=== PATIENT | female | born 1925 | race Caucasian/White ===

== ENCOUNTER 2017-02-15 10:30 | Inpatient (IN) | payer OTHER ==
[~2017-02-15] VITALS: Ht 162.6 cm; Wt 61.7 kg
[~2017-02-15 10:30] MED LIST: AMBIEN10 MG PO; ASPIR LOW81 MG PO; CARTIA XT120 MG PO; CENTRUM1 TA2 PO; CITRACAL CALCIU1 TAB PO; COL100 PO; COZAAR50 MG PO; DYA PO; MAXZIDE1 TAB PO; MIRUD PO; NOR10T PO; OSCD PO; PRI20 PO; PYR100 PO; ROC1I IV; TEMAZEPAM15 MG PO; TOR10 PO
--- NOTE | 2017-02-15 11:06 | NUR ---
PT BROUGHT TO ED BY SON FROM PRIMARY MD OFFICE FOR URINARY RETENTION SINCE LAST NIGHT. 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 " PT REPORTS FREQUENT UTI SYMPTOMS WITH DYSURIA, FREQUENCY, RETENTION AND INCONTINENCE THAT WORSENED X2 DAYS WITH RETENTION SINCE LAST NIGHT. PT AWAKE AND ALERT, RESPS EVEN AND UNLABORED, ABDOMEN FLAT/FIRM TO BLQ, TENDER TO TOUCH, PULL UP IN PLACE FROM HOME FOR INCONTINENCE. PT GOWNED, AWAITING MSE.
--- NOTE | 2017-02-15 11:18 | NUR ---
ATTEMPTED CHATTERJEE CATHETER X2, UNSUCCESSFUL, UNABLE TO ADVANCE, FEEL BLOCKAGE.
--- NOTE | 2017-02-15 11:22 | NUR ---
DR. ESPITIA AT BEDSIDE FOR MSE.
[2017-02-15 11:36] LABS: PLATELET COUNT 214 x10^3mcL (130-400)
[2017-02-15 11:44] LABS: CALCIUM 9.5 mg/dL (8.5-10.1); CARBON DIOXIDE 28.6 mmol/L (21-32); CHLORIDE SERUM 106 mmol/L (98-107); CREATININE SERUM 0.7 mg/dL (0.6-1.0); GLUCOSE SERUM 94 mg/dL (74-106); SODIUM SERUM 142 mmol/L (136-145)
[2017-02-15 11:49] LABS: ALBUMIN 3.8 g/dL (3.4-5.0); ALKALINE PHOSPHATASE 88 U/L (46-116); ALT/SGPT 12 U/L (14-59); AST/SGOT 12 U/L (15-37); BILIRUBIN TOTAL 0.46 mg/dL (0.20-1.00); LIPASE 85 IU/L (73-393); TOTAL PROTEIN, SERUM 7.3 g/dL (6.4-8.2)
--- NOTE | 2017-02-15 12:04 | NUR ---
PT VOIDED APPROX 160CC CLEAR YELLOW URINE TO BED BEAR. URINE SAMPLE SENT TO LAB, PT REPORTS RELIEVED PAIN TO ABDOMEN POST VOIDING.
[2017-02-15 12:16] LABS: RED CELL DISTRIBUTION WIDTH 15.3 % (11.5-14.5)
[2017-02-15 12:17] LABS: BASOPHIL 1 % (0-2); MONOCYTE 7 % (0-7); SEGMENTED NEUTROPHILS 80 % (37-75)
[2017-02-15 12:32] LABS: rbc morphology (normal/abnorm) NORMAL (NORMAL)
--- NOTE | 2017-02-15 13:35 | NUR ---
PT BEGAN TO C/O ABDOMINAL PAIN, MEDICATED WITH NORCO 5/325MG PO PER PT REQUEST AND MD ORDERS. PT LAYING IN ED GURNEY IN POSITION OF COMFORT, RESPS EVEN AND UNLABORED, NO S/S OF DISTRESS NOTED. COMFORT MEASURES IN PLACE, CALL LIGHT WITHIN REACH, SON AT BEDSIDE.
[2017-02-15 14:11] LABS: UA SPECIFIC GRAVITY <=1.005 (1.005-1.035); microscopic required? YES; urine erythrocyte 2+ (NEGATIVE)
--- NOTE | 2017-02-15 14:14 | NUR ---
PT TAKEN TO CT VIA [facility] BY TOD. PT IN NO DISTRESS.
--- NOTE | 2017-02-15 14:34 | NUR ---
PT BACK FROM CT, DIAPER AND PAD SATURATED WITH URINE, PT CHANGED, GOOD PERICARE PROVIDED. PT DENIES ANY PAIN, NO S/S OF DISTRESS NOTED. COMFORT MEASURES IN PLACE, SON AT BEDSIDE.
[2017-02-15] MEDS ORDERED: NORCO1 TA2 PO (15:05)
[2017-02-15] MEDS ORDERED: CLONAZEPAM0.5 MG PO (15:07)
--- NOTE | 2017-02-15 15:31 | NUR ---
REPORT CALLED TO DUSTIN DAVID, PT TO BE ADMITTED TO TELE ROOM 218B. PT A/O X4, RESPS EVEN AND UNLABORED, NO S/S OF DISTRESS NOTED.
[2017-02-15 15:48] LABS: PHOSPHOROUS 3.6 mg/dL (2.5-4.9)
[2017-02-15 15:57] LABS: T3 TOTAL 0.97 ng/mL
[2017-02-15 15:58] LABS: FREE T4 1.04 ng/dL (0.76-1.46); FREE THYROXINE INDEX 2.3 ug/dL (1.4-4.5); T4(THYROXINE) 6.7 ug/dL (4.7-13.3)
[2017-02-15 16:00] VITALS: BP 158/57
--- NOTE | 2017-02-15 16:10 | NUR ---
REC'D AOX4, SPEECH CLEAR. SON AT THE BEDSIDE. AMBULATES WITH ASSIST. DENIES PAIN, NV, DIZZINES, PUENTE. ATTACHED TELE. DENIES CHEST PAIN. ON RA, NO SOB NOTED. IV SITE WNL. ORIENTED PT TO ROOM AND SURROUNDINGS. CALL LIGHT WITHIN REACH, PROVIDED REPORT TO DUSTIN DAVID FOR CONTINUITY OF CARE.
[2017-02-15 17:05] VITALS: BP 156/58
--- NOTE | 2017-02-15 17:30 | NUR ---
SON AT BEDSIDE, PATIENT REQUESTING TO EAT. NO DIET ORDERED. DR SHAW PAGED, HE WILL PLACE REG DIET FOR DINNER. ALSO REQUESTED HIM TO PLACE CODE STATUS ORDER AND MADE HIM AWARE OF BP 158/57.
--- NOTE | 2017-02-15 18:23 | NUR ---
PATIENT TOLERATED DINNER MEAL WELL, FAIR APPETITE. SON REQUESTING TO SPEAK WITH DR. DR VALERIA MASON, STILL AWAITING NEW ORDERS. LINENS SOILED, PATIENT CLEANSED, INCONTINENCE NOTED- PATIENT STATES SHE 'FEELS LIKE GOING EVERY HOUR'. CALL LIGHT REINFORCED TO USE, VERBALIZED UNDERSTANDING. PATIENT DENIES DISCOMFORT AT THIS TIME. NO ACUTE DISTRESS NOTED. NO OTHER SIGNFICANT CHANGE IN CONDITION. WILL CONT TO MONITOR AND ENDORSE TO NOC RN.
--- NOTE | 2017-02-15 19:15 | NUR ---
SEEN IN BED AWAKE, ALERT, ORIENTED X3. SON AT BEDSIDE. NO SOB NOTED ON ROOM AIR. DENIES PAIN. OWN WALKER AT BEDSIDE. STS USUALLY TAKE SLEEPING PILL AT NIGHT. WILL FOLLOW UP WITH DOCTOR VALERIA. IV ACCESS TO LAC INTACT AND PATENT. NO ORDER FOR IVF YET. REINSTRUCTED TO USE CALL LIGHT NEEDED. BED IN LOWEST POSITION AND LOCKED. SIDERAILS UP X2.
--- NOTE | 2017-02-15 19:30 | NUR ---
DOCTOR SHAW AT BEDSIDE TALKING TO PATIENT AND HIS SON.
[2017-02-15] MEDS ORDERED: K10 PO (20:21)
[2017-02-15] MEDS ORDERED: IBUPROFEN400 MG PO (20:22)
[2017-02-15 21:59] VITALS: BP 148/56
[2017-02-16 05:53] VITALS: BP 142/55
--- NOTE | 2017-02-16 05:59 | NUR ---
NO ACUTE DISTRESS THROUGHOUT THE SHIFT. VSS. DENIES PAIN. STS VOIDED X2 NO BURNING SENSATION. BRP USING WALKER WITH STEADY GAIT. UPDATED PATIENT'S CONDITION TO FAMILY VIA PHONE.
[2017-02-16 06:32] LABS: CALCIUM 8.7 mg/dL (8.5-10.1); CARBON DIOXIDE 29.9 mmol/L (21-32); CHLORIDE SERUM 107 mmol/L (98-107); CREATININE SERUM 0.7 mg/dL (0.6-1.0); GLUCOSE SERUM 87 mg/dL (74-106); POTASSIUM SERUM 3.7 mmol/L (3.5-5.1); SODIUM SERUM 144 mmol/L (136-145)
[2017-02-16 06:44] LABS: PLATELET COUNT 204 x10^3mcL (130-400)
[2017-02-16 06:45] LABS: ALBUMIN 2.9 g/dL (3.4-5.0)
[2017-02-16 06:56] LABS: RED CELL DISTRIBUTION WIDTH 15.3 % (11.5-14.5)
--- NOTE | 2017-02-16 07:45 | NUR ---
A/O X4. CLEAR SPEECH. FOLLOW COMMANDS. ON MEDSURG HR 63. RADIAL AND PEDAL PULSES PALPABLE. NO EDEMA OR SWELLING NOTED. <3 SECS CAP REFILL. ON RA SAT 92%. BREATHING EVEN AND UNLABORED. CLEAR LUNG SOUNDS. NO NVD. HAS DYSURIA. INCONTINENT AT TIMES. HAS MILD GENERALIZED WEAKNESS. AMBULATES USING WALKER TO BATHROOM. NO SKIN TEAR OR OPEN WOUNDS. DENIES PAIN AT THIS TIME. IV SITE INTACT AT LAC. SALINE LOCK THIS TIME. CALL LIGHT WITHIN REACH. WILL CONTINUE TO MONITOR.
--- NOTE | 2017-02-16 09:17 | NUR ---
STUDENT NURSE AND INSTRUCTOR GAVE MEDS TO Pt. TOOK MEDS WITHOUT DIFFICULTY.
[2017-02-16 09:21] VITALS: BP 135/54
--- NOTE | 2017-02-16 10:44 | NUR ---
RESTING COMFORTABLY AT THIS TIME. WILL CONTINUE TO MONITOR.
--- NOTE | 2017-02-16 12:39 | NUR ---
EATING LUNCH AT THIS TIME. WILL CONTINUE TO MONITOR.
[2017-02-16 14:00] VITALS: BP 136/52
--- NOTE | 2017-02-16 14:04 | NUR ---
RESTING COMFORTABLY THIS TIME. WATCHING TV. NO DISTRESS NOTED. WILL CONTINUE TO MONITOR.
--- NOTE | 2017-02-16 16:40 | NUR ---
DR CHERRY AT BEDSIDE TALKING TO THE FAMILY.
--- NOTE | 2017-02-16 17:45 | NUR ---
FAMILY AT BEDSIDE. NO DISTRESS NOTED.
[2017-02-16 17:52] VITALS: BP 149/62
--- NOTE | 2017-02-16 18:48 | NUR ---
SON AT BEDSIDE. NO DISTRESS NOTED.
--- NOTE | 2017-02-16 19:30 | NUR ---
SEEN IN BED AWAKE, ALERT, ORIENTED X4. SON AT BEDSIDE. STS VOIDS FREELY, HAS NO BURNING SENSATION. BRP USING OWN FFW AT BEDSIDE. NO SOB ON ROOM AIR. LUNG SOUND CTA. SCD TO BLE. DENIES DISCOMFORT AT THIS TIME. PLAN OF CARE DISCUSSED. CALL LIGHT PLACED WITHIN REACH. SIDERAILS UP X2.
[2017-02-16 21:04] VITALS: BP 148/70
[2017-02-16 21:06] VITALS: BP 131/52
[2017-02-17 05:43] VITALS: BP 101/76
[2017-02-17 06:17] LABS: BASOPHIL % 0.6 % (0-2); PLATELET COUNT 201 x10^3mcL (130-400)
--- NOTE | 2017-02-17 06:42 | NUR ---
NO ACUTE DISTRESS THROUGHOUT THE SHIFT. VSS. STS VOIDED TWICE DURING THE SHIFT NO BURNING SENSATION. BRP USING OWN WALKER AT BEDSIDE. IV TO LAC UNABLE TO FLUSHED, IV CATHETER REMOVED NO REDNESS OR INFLAMATION NOTED. REFUSED IV ACCESS AFTER SEVERAL ATTEMPTION BY ME AND FRANKIE STOVER.
[2017-02-17 06:45] LABS: CALCIUM 8.8 mg/dL (8.5-10.1); CARBON DIOXIDE 28.8 mmol/L (21-32); CHLORIDE SERUM 106 mmol/L (98-107); CREATININE SERUM 0.8 mg/dL (0.6-1.0); GLUCOSE SERUM 93 mg/dL (74-106); POTASSIUM SERUM 3.8 mmol/L (3.5-5.1); SODIUM SERUM 143 mmol/L (136-145)
[2017-02-17 06:46] LABS: RED CELL DISTRIBUTION WIDTH 15.4 % (11.5-14.5)
--- NOTE | 2017-02-17 07:30 | NUR ---
RECEIVED THE PATIENT ALERT AND ORIENTED TO PERSON, PLACE AND TIME. PATIENT DENIED ANY SHORTNESS OF BREATH OR PAIN. NO IV ACCESS. CALL LIGHT WITHIN REACH. SIDE RAILS UP X3. BED WAS LOWEST POSITION, AND ALARM WAS ON. THE WALKER WAS AT BEDSIDE.
--- NOTE | 2017-02-17 08:30 | NUR ---
DR. RINALDI AND THE TEAM WERE MAKING ROUND TO SEE TO THE PATIENT. THE CARE PLAN WAS EXPLAINED TO THE PATIENT, AND THE PATIENT VERBALIZED UNDERSTANDING.
[2017-02-17 09:15] VITALS: BP 158/55
[2017-02-17 14:23] VITALS: BP 155/55
--- NOTE | 2017-02-17 14:55 | NUR ---
DISCHARGE INSTRUCTIONS GIVEN TO PT INCLUDING MEDICAL FOLLOW-UP W/ PCP AND DR. CORREIA. ADDITIONAL EDUCATIONAL MATERIAL REGARDING UTI PROVIDED. PT VERBALIZES UNDERSTANDING. INSTRUCTED PT TO CALL WHEN HIS PATIENT ARRIVES. PRIMARY NURSE ROSA CONLEY
--- NOTE | 2017-02-17 15:32 | NUR ---
THE PATIENT WAS TAKEN TO THE DISCHARGE OFFICE IN STABLE CONDITION. ALL BELONGINGS WERE SENT HOME WITH THE PATIENT UPON DISCHARGE.
== END 2017-02-17 15:32 | disposition home or self-care (01) | DRG 696 ==
LOC: ED 10:30 → DU 14:23 → MU 02-17 06:48
PROVIDERS: Emergency Medicine; Family Medicine; ADMIT Family Medicine
DX: R33.9 Retention of urine, unspecified (principal); I42.8 Other cardiomyopathies; E44.0 Moderate protein-calorie malnutrition; R31.9 Hematuria, unspecified; I10 Essential (primary) hypertension; F41.9 Anxiety disorder, unspecified; I25.10 Atherosclerotic heart disease of native coronary artery without angina pectoris; G47.00 Insomnia, unspecified; M79.7 Fibromyalgia; G25.81 Restless legs syndrome; E78.5 Hyperlipidemia, unspecified; M81.0 Age-related osteoporosis without current pathological fracture; D64.9 Anemia, unspecified; I25.2 Old myocardial infarction; Z92.3 Personal history of irradiation; Z68.23 Body mass index [BMI] 23.0-23.9, adult; Z85.51 Personal history of malignant neoplasm of bladder; Z95.5 Presence of coronary angioplasty implant and graft
CPT/HCPCS: 80307; 83880; 84439; J7030; Q0092